=== PATIENT | male | born 1970 | race Caucasian/White ===

== ENCOUNTER 2018-10-24 13:23 | Observation (INO) | payer BC, OTHER ==
[2018-10-24 13:40] LABS: Glucose,Whole Blood 83 mg/dL (75-99)
[2018-10-24 14:35] LABS: Basophils % (A) 1 %; Eosinophils # (A) 0.2 k/uL (0-0.7); Eosinophils % (A) 4 %; HCT 47.5 % (39.0-53.0); HGB 16.3 gm/dL (13.0-17.5); Lymphocytes # (A) 1.2 k/uL (1.0-4.8); Lymphocytes % (A) 22 %; MCH 30.2 pg (25.0-35.0); MCHC 34.3 g/dL (31.0-37.0); MCV 88.1 fL (80.0-100.0); Monocytes # (A) 0.5 k/uL (0-1.0); Monocytes % (A) 9 %; Neutrophils # (A) 3.3 k/uL (1.3-7.7); Neutrophils % (A) 62 %; Platelet Count 180 k/uL (150-450); RBC 5.39 m/uL (4.30-5.90); RDW 14.8 % (11.5-15.5); WBC 5.3 k/uL (3.8-10.6)
[2018-10-24 14:44] LABS: Partial Thromboplastin Time 24.3 sec (22.0-30.0); Prothrombin Time 10.5 sec (9.0-12.0)
[2018-10-24 14:56] LABS: ALT 44 U/L (21-72); AST 30 U/L (17-59); African American GFR (CKD) >90 (>60 ml/min/1.73 sqM); Alkaline Phosphatase 63 U/L (38-126); Anion Gap 11 mmol/L; Blood Urea Nitrogen 20 mg/dL (9-20); Calcium 9.8 mg/dL (8.4-10.2); Carbon Dioxide 27 mmol/L (22-30); Chloride 102 mmol/L (98-107); Glucose 89 mg/dL (74-99); Potassium 4.1 mmol/L (3.5-5.1); Sodium 140 mmol/L (137-145); Total Bilirubin 0.6 mg/dL (0.2-1.3); Total Protein 8.6 g/dL (6.3-8.2)
--- NOTE | 2018-10-24 15:05 | CT ---
EXAMINATION TYPE: CT brain wo con for TPA DATE OF EXAM: 10/24/2018 COMPARISON: None HISTORY: Right side facial numbness and right arm/hand numbness CT DLP: [address] of the brain was performed. The ventricles, basal cisterns and sulci overlying the cerebral convexities demonstrate a normal appe arance. There is no evidence for intracranial hemorrhage or sulcal effacement. No mass effects are seen. Osseous calvarium is intact. If symptoms persist consider MRI as clinically warranted. IMPRESSION: 1. No acute intracranial process is seen at this time.
--- NOTE | 2018-10-24 15:32 | CT ---
EXAMINATION TYPE: CT angio head neck DATE OF EXAM: 10/24/2018 COMPARISON: HISTORY: Right side facial numbness and right arm/hand numbness CT DLP: 728 mGycm CONTRAST: Performed with IV Contrast, patient injected with 50 mL of Isovue 370. Combination Contrast CTA cervical carotids and [place] CTA cervical carotids with 3-D recons truction Contrast CTA of the cervical carotids was performed 3-D reconstruction imaging obtained at a separate workstation. Right carotid system: Mild plaque is seen of the right common carotid artery. There is mild plaque a lso noted at the carotid bulb and proximal ICA. No significant diameter reduction. ECA is patent. Right vertebral artery appears unremarkable. Left carotid system: Mild plaque is seen of the left common carotid artery. There is mild plaque als o noted at the carotid bulb and proximal ICA. No significant diameter reduction. ECA is patent. Lef t vertebral artery appears unremarkable. IMPRESSION: 1. No significant diameter reduction to account for the patient's symptoms. CTA [place] with 3-D reconstruction Contrast CTA of the [place] was performed 3-D reconstruction imaging obtained at a separate workstation. Vertebrobasilar system as well as intracranial portions of the internal carotid arteries and their ma kian tributaries are patent. I do not see evidence for sizable aneurysm or vascular malformation. Pl ease note MRI provides greater sensitivity and specificity. Visualized brain appears grossly unremar kable. IMPRESSION: 1. No significant abnormality.
--- NOTE | 2018-10-24 15:32 | XR ---
EXAMINATION TYPE: XR chest 2V DATE OF EXAM: 10/24/2018 COMPARISON: 10/11/2012 HISTORY: Altered mental status TECHNIQUE: Frontal and lateral views of the chest are obtained. FINDINGS: There are bilateral perihilar opacities. These are masslike in configuration. Remainder th e lungs are clear other than minimal right suprahilar linear probable atelectasis. Cardiomediastinal silhouette is within normal limits. No sizable pneumothorax or pleural effusion. No acute osseous pat hology. IMPRESSION: Bilateral perihilar masslike consolidations. Findings may represent multifocal pneumonia although follow-up to resolution is recommended to exclude pulmonary masses.
--- NOTE | 2018-10-24 16:18 | ED ---
Neuro HPI - General Chief Complaint: Neuro Symptoms/Deficit Stated Complaint: Stroke symptoms Time Seen by Provider: 10/24/18 13:35 Source: patient Mode of arrival: wheelchair Limitations: no limitations - History of Present Illness Is the patient presenting with stroke symptoms?: Yes Initial Comments: The patient is a 48 year old male who presents to the emergency department with reported strokelike symptoms. He states that at noon today he was at work when he had sudden onset of right-sided facial numbness and right upper extremity numbness and weakness. No history of TIA or CVA in the past. Also reported that he had associated difficulties with his speech. It lasted for approximately 10 minutes before self resolving. The patient did come to the emergency room for evaluation. He denies any current symptoms at this time. He denies any visual changes, headache, fevers or chills. No recent blunt head trauma. History of any cardiac arrhythmias. No recent medication changes. Denies ataxia or vertigo. He denies any chest pain or chest palpitations. No shortness of breath. Denies any weakness in his lower extremities. No ripping or tearing sensation to his back. There are no other alleviating, precipitating or modifying factors - Related Data Home Medications: Home Medications Medication Instructions Recorded Confirmed inFLIXimab [Remicade] 700 mg IVPB Q180D 07/09/13 10/24/18 Lisinopril [Zestril] 5 mg PO DAILY 10/24/18 10/24/18 Previous Rx's Medication Instructions Recorded Aspirin 81 mg PO DAILY #30 chewable 10/25/18 Atorvastatin Calcium [Lipitor] 80 mg PO HS #30 tablet 10/25/18 Allergies/Adverse Reactions: Allergies Allergy/AdvReac Type Severity Reaction Status Date / Time No Known Allergies Allergy Verified 10/24/18 14:13 Review of Systems ROS Statement: Those systems with pertinent positive or pertinent negative responses have been documented in the HPI. ROS Other: All systems not noted in ROS Statement are negative. General Exam Limitations: no limitations General appearance: alert, in no apparent distress Head exam: Present: atraumatic, normocephalic, normal inspection Eye exam: Present: normal appearance, PERRL, EOMI. Absent: scleral icterus, conjunctival injection, periorbital swelling ENT exam: Present: normal exam, mucous membranes moist Neck exam: Present: normal inspection. Absent: tenderness, meningismus, lymphadenopathy Respiratory exam: Present: normal lung sounds bilaterally. Absent: respiratory distress, wheezes, rales, rhonchi, stridor Cardiovascular Exam: Present: regular rate, normal rhythm, normal heart sounds. Absent: systolic murmur, diastolic murmur, rubs, gallop, clicks GI/Abdominal exam: Present: soft, normal bowel sounds. Absent: distended, tenderness, guarding, rebound, rigid Extremities exam: Present: normal inspection, full ROM, normal capillary refill. Absent: tenderness, pedal edema, joint swelling, calf tenderness Back exam: Present: normal inspection Neurological exam: Present: alert, oriented X3, CN II-XII intact, normal gait, reflexes normal, other (finger to nose is symmetric bilaterally. Negative pronator drift. No dysdiokinesia). Absent: motor sensory deficit Psychiatric exam: Present: normal affect, normal mood Skin exam: Present: warm, dry, intact, normal color. Absent: rash Stroke MDM - Lab Data Result diagrams: 10/25/18 06:28 10/25/18 06:28 Lab Results 10/24/18 10/24/18 10/24/18 Range/Units 13:38 13:40 13:40 WBC 5.3 (3.8-10.6) k/uL RBC 5.39 (4.30-5.90) m/uL Hgb 16.3 (13.0-17.5) gm/dL Hct 47.5 (39.0-53.0) % MCV 88.1 (80.0-100.0) fL MCH 30.2 (25.0-35.0) pg MCHC 34.3 (31.0-37.0) g/dL RDW 14.8 (11.5-15.5) % Plt Count 180 (150-450) k/uL Neutrophils % 62 % Lymphocytes % 22 % Monocytes % 9 % Eosinophils % 4 % Basophils % 1 % Neutrophils # 3.3 (1.3-7.7) k/uL Lymphocytes # 1.2 (1.0-4.8) k/uL Monocytes # 0.5 (0-1.0) k/uL Eosinophils # 0.2 (0-0.7) k/uL Basophils # 0.0 (0-0.2) k/uL PT (9.0-12.0) sec INR (<1.2) APTT (22.0-30.0) sec Sodium 140 (137-145) mmol/L Potassium 4.1 (3.5-5.1) mmol/L Chloride 102 (98-107) mmol/L Carbon Dioxide 27 (22-30) mmol/L Anion Gap 11 mmol/L BUN 20 (9-20) mg/dL Creatinine 1.10 (0.66-1.25) mg/dL Est GFR (CKD-EPI)AfAm >90 (>60 ml/min/1.73 sqM) Est GFR (CKD-EPI)NonAf 80 (>60 ml/min/1.73 sqM) Glucose 89 (74-99) mg/dL POC Glucose (mg/dL) 83 (75-99) mg/dL POC Glu Typewriter Repairer ID Calcium 9.8 (8.4-10.2) mg/dL Total Bilirubin 0.6 (0.2-1.3) mg/dL AST 30 (17-59) U/L ALT 44 (21-72) U/L Alkaline Phosphatase 63 (38-126) U/L Total Protein 8.6 H (6.3-8.2) g/dL Albumin 5.0 (3.5-5.0) g/dL 10/24/18 Range/Units 13:40 WBC (3.8-10.6) k/uL RBC (4.30-5.90) m/uL Hgb (13.0-17.5) gm/dL Hct (39.0-53.0) % MCV (80.0-100.0) fL MCH (25.0-35.0) pg MCHC (31.0-37.0) g/dL RDW (11.5-15.5) % Plt Count (150-450) k/uL Neutrophils % % Lymphocytes % % Monocytes % % Eosinophils % % Basophils % % Neutrophils # (1.3-7.7) k/uL Lymphocytes # (1.0-4.8) k/uL Monocytes # (0-1.0) k/uL Eosinophils # (0-0.7) k/uL Basophils # (0-0.2) k/uL PT 10.5 (9.0-12.0) sec INR 1.0 (<1.2) APTT 24.3 (22.0-30.0) sec Sodium (137-145) mmol/L Potassium (3.5-5.1) mmol/L Chloride (98-107) mmol/L Carbon Dioxide (22-30) mmol/L Anion Gap mmol/L BUN (9-20) mg/dL Creatinine (0.66-1.25) mg/dL Est GFR (CKD-EPI)AfAm (>60 ml/min/1.73 sqM) Est GFR (CKD-EPI)NonAf (>60 ml/min/1.73 sqM) Glucose (74-99) mg/dL POC Glucose (mg/dL) (75-99) mg/dL POC Glu Typewriter Repairer ID Calcium (8.4-10.2) mg/dL Total Bilirubin (0.2-1.3) mg/dL AST (17-59) U/L ALT (21-72) U/L Alkaline Phosphatase (38-126) U/L Total Protein (6.3-8.2) g/dL Albumin (3.5-5.0) g/dL - Medical Decision Making Upon arrival the patient is placed in room 14. He is hooked up to continuous pulse ox and cardiac monitoring. NIH scale is performed in the patient has a score of 0. I did discuss diagnosis, differential and treatment options. Peripheral IV is established. Laboratory studies were obtained. I did send the patient for a CT of his head as well as CT angios head and neck. Upon review the results I did discuss them with the patient. There are no acute signs of stroke on CT at this time. I did recommend hospital admission for which the patient did agree to. I did call discuss case with Dr. Owens. She did accept admission for the patient. She is requesting echo and ultrasound of the carotids to be performed. She is also requesting a neurology consult for possible MRI. These orders are placed. I did get a call from radiology which stated that they did not think the ultrasound of the carotids was appropriate. They're refusing to perform the exam at this time. I will defer to the primary care physician to proceed. I did provide the patient with an aspirin 324 mg and a statin. The patient remained in stable condition with no new focal neurologic deficits and was transported to the floor in stable condition 10/24/18 18:26 EKG demonstrates a normal sinus rhythm with a ventricular rate of 75. CO interval 150. QRS 98. QTC 406. There are no acute ST segment elevations. There is mild J-point elevation in all leads. No reciprocal changes Past Medical History Past Medical History: No Reported History Additional Past Medical History / Comment(s): Hx. biopsy lymph nodes Hx. psoriasis History of Any Multi-Drug Resistant Organisms: None Reported Past Surgical History: No Surgical Hx Reported Additional Past Surgical History / Comment(s): Hx. left knee arthrosc/Hx. circumcision Past Anesthesia/Blood Transfusion Reactions: No Reported Reaction Past Psychological History: No Psychological Hx Reported Smoking Status: Never smoker Past Alcohol Use History: Occasional Past Drug Use History: None Reported - Past Family History Father History Unknown: Yes Mother History Unknown: Yes Additional Family Medical History / Comment(s): GREAT GRANDMA HISTORY OF STROKES Course Vital Signs 10/24/18 10/24/18 10/24/18 13:25 13:45 16:41 Temperature 98.5 F Pulse Rate 77 82 79 Respiratory 18 14 18 Rate Blood Pressure 141/91 159/99 145/98 O2 Sat by Pulse 100 100 98 Oximetry 10/24/18 10/24/18 10/24/18 17:00 17:30 18:00 Temperature Pulse Rate 95 80 84 Respiratory 16 18 17 Rate Blood Pressure 121/90 139/96 134/84 O2 Sat by Pulse 95 97 99 Oximetry 10/24/18 10/24/18 18:30 19:40 Temperature 98.1 F Pulse Rate 85 82 Respiratory 16 18 Rate Blood Pressure 131/93 147/94 O2 Sat by Pulse 99 97 Oximetry Disposition Clinical Impression: Transient cerebral ischemia Disposition: ADMITTED IP TO THIS [facility] Condition: Stable Is patient prescribed a controlled substance at d/c from ED?: No Decision to Admit Reason: Admit from EC Decision Date: 10/24/18 Decision Time: 16:17
[2018-10-24] MEDS ORDERED: NALOXONE 0.4 MG/ML 1 ML VIAL IV PRN (16:19)
[2018-10-24] MEDS ORDERED: ATORVASTATIN 40 MG TAB PO STA (16:21)
[2018-10-24] MEDS ORDERED: ASPIRIN 325 MG TAB PO ONE (16:30)
[2018-10-25 03:54] VITALS: RESP 18
[2018-10-25 07:25] LABS: African American GFR (CKD) >90 (>60 ml/min/1.73 sqM); Anion Gap 11 mmol/L; Blood Urea Nitrogen 20 mg/dL (9-20); Calcium 9.5 mg/dL (8.4-10.2); Carbon Dioxide 22 mmol/L (22-30); Chloride 106 mmol/L (98-107); Glucose 101 mg/dL (74-99); Potassium 4.9 mmol/L (3.5-5.1); Sodium 139 mmol/L (137-145)
[2018-10-25] MEDS ORDERED: ASPIRIN 325 MG TAB PO SCH (09:00)
[2018-10-25 09:03] LABS: HCT 46.5 % (39.0-53.0); MCH 30.3 pg (25.0-35.0); MCHC 34.4 g/dL (31.0-37.0); MCV 88.2 fL (80.0-100.0); Mean Platelet Volume 7.5; Platelet Count 174 k/uL (150-450); RBC 5.27 m/uL (4.30-5.90); RDW 14.9 % (11.5-15.5); WBC 4.8 k/uL (3.8-10.6)
[2018-10-25] MEDS ORDERED: LISINOPRIL 5 MG TAB PO SCH (09:15)
[2018-10-25 09:36] LABS: Eosinophils # (M) 0.14 k/uL (0-0.7); Lymphocytes # (M) 1.39 k/uL (1.0-4.8); Monocytes # (M) 0.34 k/uL (0-1.0); Neutrophils % (M) 61 %; Nucleated Red Blood Cells 0 /100 WBC (0-0); Total Cells Counted 100
--- NOTE | 2018-10-25 10:46 | ECHOF ---
Referral Reason:tia MEASUREMENTS -------- HEIGHT: 175.3 cm WEIGHT: 92.1 kg BP: 120/70 RVIDd: 3.1 cm (< 3.3) IVSd: 1.2 cm (0.6 - 1.1) LVIDd: 3.2 cm (3.9 - 5.3) LVPWd: 1.4 cm (0.6 - 1.1) IVSs: 1.6 cm LVIDs: 1.9 cm LVPWs: 1.7 cm LAESV Index (A-L): 13.72 ml/m Ao Diam: 3.4 cm (2.0 - 3.7) AV Cusp: 1.9 cm (1.5 - 2.6) LA Diam: 2.9 cm (2.7 - 3.8) MV EXCURSION: 17.570 mm (> 18.000) MV EF SLOPE: 88 mm/s (70 - 150) EPSS: 0.2 cm MV E Kwesi: 0.69 m/s MV DecT: 240 ms MV A Kwesi: 0.75 m/s MV E/A Ratio: 0.92 RAP: 5.00 mmHg RVSP: 20.05 mmHg FINDINGS -------- Sinus rhythm. This was a technically adequate study. The left ventricular size is normal. There is mild concentric left ventricular hypertrophy. Overa ll left ventricular systolic function is normal with, an EF between 60 - 65 %. The diastolic fillin g pattern is normal for the age of the patient 9.57. The right ventricle is normal in size. Normal LA size by volume 22+/-6 ml/m2. The right atrial size is normal. Interatrial and interventricular septum intact. The aortic valve is trileaflet and appears structurally normal. There is no evidence of aortic regu rgitation. There is no evidence of aortic stenosis. The mitral valve is normal. Mild mitral regurgitation is present. Mild tricuspid regurgitation present. There is no evidence of pulmonary hypertension. The right v entricular systolic pressure, as measured by Doppler, is 20.05mmHg. Trace/mild (physiologic) pulmonic regurgitation. The aortic root is dilated measuring 3.4cm. Normal inferior vena cava with normal inspiratory collapse consistent with estimated right atrial pre ssure of 5 mmHg. There is no pericardial effusion. CONCLUSIONS -------- 1. Sinus rhythm. 2. This was a technically adequate study. 3. The left ventricular size is normal. 4. There is mild concentric left ventricular hypertrophy. 5. Overall left ventricular systolic function is normal with, an EF between 60 - 65 %. 6. The right ventricle is normal in size. 7. Normal LA size by volume 22+/-6 ml/m2. 8. The right atrial size is normal. 9. Interatrial and interventricular septum intact. 10. The aortic valve is trileaflet and appears structurally normal. 11. There is no evidence of aortic regurgitation. 12. There is no evidence of aortic stenosis. 13. The mitral valve is normal. 14. Mild mitral regurgitation is present. 15. Mild tricuspid regurgitation present. 16. There is no evidence of pulmonary hypertension. 17. The right ventricular systolic pressure, as measured by Doppler, is 20.05mmHg. 18. Trace/mild (physiologic) pulmonic regurgitation. 19. The aortic root is dilated measuring 3.4cm. 20. Normal inferior vena cava with normal inspiratory collapse consistent with estimated right atrial pressure of 5 mmHg. 21. There is no pericardial effusion. FAMILY PRESERVATION WORKER: Tamera Banks BRITTNY
[2018-10-25 10:59] LABS: Cholesterol 220 mg/dL (<200); HDL Cholesterol 53 mg/dL (40-60); LDL Cholesterol,Calculated 154 mg/dL (0-99); Triglycerides 63 mg/dL (<150)
[2018-10-25 12:34] VITALS: BP 118/84; PULSE 76; TEMP 97.9
--- NOTE | 2018-10-25 12:41 | P.HPIM ---
History of Present Illness H&P Date: 10/25/18 Chief Complaint: Numbness HISTORY AND PHYSICAL AND DISCHARGE SUMMARY: This is a 48-year-old male patient of Dr. Jones with past medical history of psoriasis on Remicade, hypertension. 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 All his symptoms lasted for about 5-10 minutes. He denies any change in the strength of his extremities. He denies any headache, no neck pain, no back pain. He denies any difficulty with walking or balance issues. He denies any patient denies having any shortness of breath, cough. He denies any sick contacts. He does give history that he has had an abnormal chest x-ray and was worked up by Dr. Garza and sarcoidosis was ruled out. patient came into [facility] emergency center for evaluation. Patient was afebrile, blood pressure 141/81, pulse ox 100% on room air, heart rate 77. CBC and comprehensive metabolic panel within normal limits. Triglycerides 63, cholesterol 220, LDL 154, HDL 53. INR 1. Echocardiogram reveals EF of 60-65%, mild mitral regurgitation and mild tricuspid regurgitation. No pulmonary hypertension. Aortic root is dilated at 3.4 cm. CAT scan of the brain showed no acute abnormality. CT angiogram of the head and neck was negative. Chest x-ray reveals bilateral perihilar masslike consolidations. Findings may represent multifocal pneumonia, follow-up to exclude pulmonary masses. Patient placed on the cardiac stepdown unit as observation status. Consult with neurology. Patient has been seen in consultation by Dr. Locke with recommendations for baby aspirin, atorvastatin, outpatient neurology follow-up and MRI of the brain. Outpatient MRI of the brain will be scheduled. Patient will be discharged home today in stable condition. Review of Systems All systems: negative Constitutional: Denies anorexia, Denies chills, Denies fatigue, Denies fever, Denies lethargy, Denies malaise, Denies poor appetite, Denies sweats, Denies weakness, Denies weight loss Eyes: denies blurred vision, denies pain Ears, nose, mouth and throat: Denies headache, Denies nasal congestion, Denies nasal discharge, Denies sore throat, Denies vertigo Cardiovascular: Denies chest pain, Denies dyspnea on exertion, Denies edema, Denies leg edema, Denies lightheadedness, Denies shortness of breath, Denies syncope Respiratory: Denies cough, Denies cough with sputum, Denies dyspnea, Denies excessive sputum, Denies hemoptysis, Denies home oxygen, Denies wheezing Gastrointestinal: Denies abdominal pain, Denies diarrhea, Denies nausea, Denies vomiting Genitourinary: Denies dysuria, Denies urinary retention Musculoskeletal: Denies gait dysfunction, Denies muscle weakness, Denies myalgias Integumentary: Denies pruritus, Denies rash, Denies wounds Neurological: Reports numbness, Denies aphasia, Denies ataxia, Denies change in mentation, Denies change in speech, Denies confusion, Denies gait dysfunction, Denies headaches, Denies seizures, Denies vertigo, Denies weakness Psychiatric: Denies anxiety, Denies depression Endocrine: Denies fatigue, Denies weight change Past Medical History Past Medical History: No Reported History Additional Past Medical History / Comment(s): Hx. biopsy lymph nodes Hx. psoriasis History of Any Multi-Drug Resistant Organisms: None Reported Past Surgical History: No Surgical Hx Reported Additional Past Surgical History / Comment(s): Hx. left knee arthrosc/Hx. circumcision Past Anesthesia/Blood Transfusion Reactions: No Reported Reaction Past Psychological History: No Psychological Hx Reported Smoking Status: Never smoker Past Alcohol Use History: Occasional Additional Past Alcohol Use History / Comment(s): Patient is a lifelong nonsmoker. No illicit drug use. Occasional alcohol use. Past Drug Use History: None Reported - Past Family History Father History Unknown: Yes Additional Family Medical History / Comment(s): Father is alive with no major medical problems. No history of stroke. No history of autoimmune disorder Mother History Unknown: Yes Additional Family Medical History / Comment(s): GREAT GRANDMA HISTORY OF STROKES. Mother is alive at age 78 with no major medical problems. No history of stroke. No history of autoimmune disorder. Medications and Allergies Home Medications Medication Instructions Recorded Confirmed Type inFLIXimab [Remicade] 700 mg IVPB Q180D 07/09/13 10/24/18 History Lisinopril [Zestril] 5 mg PO DAILY 10/24/18 10/24/18 History Aspirin 81 mg PO DAILY #30 chewable 10/25/18 Rx Atorvastatin Calcium [Lipitor] 80 mg PO HS #30 tablet 10/25/18 Rx Allergies Allergy/AdvReac Type Severity Reaction Status Date / Time No Known Allergies Allergy Verified 10/24/18 14:13 Physical Exam Vitals: Vital Signs Temp Pulse Pulse Resp BP BP Pulse Ox 10/25/18 07:44 97.6 F 80 18 130/86 10/25/18 04:00 98.1 F 78 18 130/88 98 10/25/18 00:00 98.3 F 78 18 120/70 97 10/24/18 20:30 98.2 F 78 16 140/87 98 10/24/18 19:40 98.1 F 82 18 147/94 97 10/24/18 18:30 85 16 131/93 99 10/24/18 18:00 84 17 134/84 99 10/24/18 17:30 80 18 139/96 97 10/24/18 17:00 95 16 121/90 95 10/24/18 16:41 79 18 145/98 98 10/24/18 13:45 82 14 159/99 100 10/24/18 13:25 98.5 F 77 18 141/91 100 Intake and Output 10/24/18 10/25/18 10/25/18 22:59 06:59 14:59 Other: Voiding Method Toilet Toilet # Voids 1 Weight 92.2 kg Gen: This is a 48-year-old male. Patient is resting in bed appears comfortable and in no acute distress. HEENT: Head is atraumatic, normocephalic. Pupils equal, round. Sclerae is anicteric. NECK: Supple. No JVD. No lymphadenopathy. No thyromegaly. LUNGS: Clear to auscultation. No wheezes or rhonchi. No intercostal retractions. HEART: Regular rate and rhythm. No murmur. ABDOMEN: Soft. Bowel sounds are present. No masses. No tenderness. EXTREMITIES: No pedal edema. No calf tenderness. NEUROLOGICAL: Patient is awake, alert and oriented x3. Cranial nerves 2 through 12 are grossly intact. Results CBC & Chem 7: 10/25/18 06:28 10/25/18 06:28 Labs: Abnormal Lab Results - Last 24 Hours (Table) 10/24/18 10/25/18 Range/Units 13:40 06:28 Glucose 101 H (74-99) mg/dL Total Protein 8.6 H (6.3-8.2) g/dL Thrombosis Risk Factor Assmnt - Choose All That Apply Each Factor Represents 1 point: Age 41-60 years Thrombosis Risk Factor Assessment Total Risk Factor Score: 1 Thrombosis Risk Factor Assessment Level: Low Risk Assessment and Plan Plan: 1. Transient numbness of the tongue, face, right hand. Neurology consult. All testing has been negative. 2. Psoriasis. Patient is on Remicade. 3. Hypertension. Continue lisinopril 5 mg daily. Patient placed as observation status. Discharge plan: home Discharge Medication List inFLIXimab [Remicade] 700 mg IVPB Q180D 07/09/13 [History] Lisinopril [Zestril] 5 mg PO DAILY 10/24/18 [History] Aspirin 81 mg PO DAILY #30 chewable 10/25/18 [Rx] Atorvastatin Calcium [Lipitor] 80 mg PO HS #30 tablet 10/25/18 [Rx] Impression and plan of care have been directed as dictated by the signing physician. Myra Barton nurse practitioner acting as scribe for signing physician.
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
== END 2018-10-25 15:48 | disposition home or self-care (01) ==
LOC: EC 13:23 → 3SCARD 16:19
PROVIDERS: ADMIT Internal Medicine; ATTEND Internal Medicine
DX: R20.0 Anesthesia of skin (principal); R47.81 Slurred speech; R53.1 Weakness; L40.9 Psoriasis, unspecified; I08.1 Rheumatic disorders of both mitral and tricuspid valves; I10 Essential (primary) hypertension; Z79.82 Long term (current) use of aspirin; Z79.899 Other long term (current) drug therapy; Z87.828 Personal history of other (healed) physical injury and trauma; Z82.3 Family history of stroke
CPT/HCPCS: 99285; 36415; 93005; 93306; 80061; 80053; 80048; 85025 ×2; 85610; 85730; 71046; 70496; 70450; 70498; G0378 ×2; Q9967

== ENCOUNTER → 2018-10-30 | Outpatient (CLI) | payer BC ==
--- NOTE | 2018-10-30 22:47 | MR ---
EXAMINATION TYPE: MR brain wo/w con DATE OF EXAM: 10/30/2018 COMPARISON: CT brain 6 days ago. HISTORY: Tongue numbness and right-sided numbness. Acute onset neuro deficits earlier this week. TIA. TECHNIQUE: Multiplanar, multisequence images of the brain and brainstem is performed without and with IV contras t, utilizing 9 mL intravenous Gadavist . FINDINGS: Diffusion weighted images demonstrate no evidence of a recent infarct or other diffusion ab normality. There is no extra-axial fluid collection or significant white matter signal abnormality. The ventricular system and cisternal spaces are normal in size and appearance. The brain volume is age appropriate. Midline structures demonstrate normal morphology. The craniocervical junction appears within normal limits. Post contrast images demonstrate no abnormal enhancement. The dural venous sinuses appear pa tent. The visualized sinuses are clear and the globes are intact. IMPRESSION: No evidence of a recent infarct. Fairly unremarkable study.
== END | disposition home or self-care (01) ==
LOC: RADMRIMAIN 18:00
PROVIDERS: ATTEND Internal Medicine Geriatric Medicine
DX: G45.9 Transient cerebral ischemic attack, unspecified (principal)
CPT/HCPCS: 70553; A9585

== ENCOUNTER → 2018-11-04 | Outpatient (CLI) | payer BC ==
--- NOTE | 2018-12-06 18:38 | P.PN ---
Progress Note - Text Progress Note Date: 12/06/18 This is a report on the 30 day event monitor. Baseline rhythm is sinus. Patient remained mostly in sinus rhythm and episodes of sinus tachycardia, no supraventricular or ventricular arrhythmias are detected. Patient complained of having some numbness in the fingers and face not correlating with any cardiac events. Final impression: #1. Sinus rhythm. #2 episodes of sinus tachycardia #3. No sustained arrhythmias. #4. Patient complained of some numbness in the fingers and face not correlating with any cardiac events
--- NOTE | 2018-12-09 13:49 | EM ---
This is a report on the 30 day event monitor. Baseline rhythm is sinus. Patient remained mostly in sinus rhythm and episodes of sinus tachycardia, no supraventricular or ventricular arrhythmias are detected. Patient complained of having some numbness in the fingers and face not correlating with any cardiac events. Final impression: #1. Sinus rhythm. #2 episodes of sinus tachycardia #3. No sustained arrhythmias. #4. Patient complained of some numbness in the fingers and face not correlating with any cardiac events MTDD
== END | disposition home or self-care (01) ==
LOC: RADECHMAIN 11:28
PROVIDERS: ATTEND Internal Medicine Geriatric Medicine
DX: R00.0 Tachycardia, unspecified (principal); R20.0 Anesthesia of skin; G45.9 Transient cerebral ischemic attack, unspecified
CPT/HCPCS: 93270

== ENCOUNTER → 2018-12-10 | Outpatient (CLI) | payer BC ==
--- NOTE | 2018-12-10 13:14 | XR ---
EXAMINATION TYPE: XR cervical spine comp DATE OF EXAM: 12/10/2018 TECHNIQUE: Frontal, lateral, oblique, swimmers, and open mouth view of the cervical spine are obtaine d. HISTORY: M54.2 COMPARISON: None FINDINGS: The cervical spine is visualized in its entirety from C1 thru the top of T1 level, it is s atisfactory in alignment without evidence of acute fracture or dislocation. Uncovertebral hypertroph y is seen at C3-C4 creating mild left neural foraminal narrowing at C3-C4. Uncovertebral hypertrophy is also seen on the left at C7. No significant neural foraminal narrowing on the oblique images. The pre-vertebral soft tissue appears within normal limits. The C1-C2 articulation is within normal limi ts on the open mouth view. IMPRESSION: No acute fracture or dislocation is seen in the cervical spine. Mild multilevel degenera tive disc disease at C3-C4.
== END | disposition home or self-care (01) ==
LOC: RADXRMAIN 12:03
PROVIDERS: ATTEND Internal Medicine Geriatric Medicine
DX: M50.31 Other cervical disc degeneration, high cervical region (principal)
CPT/HCPCS: 72050

== ENCOUNTER → 2018-12-12 | Outpatient (CLI) | payer BC ==
--- NOTE | 2018-12-15 16:32 | EEG ---
ELECTROENCEPHALOGRAM REPORT PROCEDURE DATE: 12/12/2018. ELECTROENCEPHALOGRAM (EEG) REPORT: TECHNIQUE: A routine 18 channel EEG was performed with video using the 10/20 international system. HISTORY: Numbness and tingling in the right hand/finger tips and right facial numbness. In some of these episodes, patient has also experienced loss of speech. CURRENT MEDICATIONS: Keppra, aspirin, lisinopril, atorvastatin. STUDY DURATION: 26 minutes. FINDINGS: BACKGROUND: The background activity consists of 9-10 Hz rhythmic waveforms symmetric through both posterior quadrants. ACTIVATION: Hyperventilation: Induced mild physiological slowing. Photic stimulation: Symmetric driving seen. Sleep: Stages I and II sleep noted. ABNORMALITIES: None. IMPRESSION: Normal EEG. No epileptiform activity was present. No seizures were recorded. MMODL / IJN: [id number] /
== END ==
LOC: NEUROMAIN 10:38
PROVIDERS: ATTEND Internal Medicine Geriatric Medicine
DX: R56.9 Unspecified convulsions (principal)
CPT/HCPCS: 95819

== ENCOUNTER → 2018-12-25 | Outpatient (CLI) | payer BC ==
--- NOTE | 2018-12-25 10:15 | MR ---
EXAMINATION TYPE: MR cervical spine wo con DATE OF EXAM: 12/25/2018 COMPARISON: None HISTORY: 48-year-old male with Cervicalgia, right sided numbness in hand/face TECHNIQUE: Multiplanar, multisequence images of the cervical spine were acquired. FINDINGS: No craniocervical junction abnormality, predental space widening, or prevertebral soft tissue swellin g. Variable mild intervertebral disc desiccation throughout the cervical spine. Preserved alignment. No suspicious bone marrow replacement. Right paracentral disc protrusion at C6-C7 with annular fissure. Mild uncovertebral joint and facet arthropathy particularly in the mid and lower cervical spine. At C2-C3, no canal or foraminal stenosis. At C3-C4, mild facet and uncovertebral joint arthropathy. Changes result in mild left greater than ri ght neuroforaminal narrowing. No spinal canal stenosis. At C4-C5, facet arthropathy and uncovertebral joint spurring causes mild left neuroforaminal stenosis without canal stenosis. At C5-C6, mild facet arthropathy without canal or foraminal stenosis. At C6-C7, right paracentral disc protrusion with annular fissure. Facet and mild uncovertebral joint arthropathy. Changes result in mild neuroforaminal narrowing. There is mild overall spinal canal sten osis with abutment and slight flattening of the right ventral cord but no cord compression or foramin al canal compromise. At C7-T1, mild facet arthropathy without canal or foraminal stenosis. Normal course and signal intensity of the cervical spinal cord. IMPRESSION: 1. Mild degenerative disc desiccation throughout the cervical spine but with a superimposed right par acentral disc herniation at C6-C7 showing an annular fissure. There is mild narrowing of the spinal c anal at this level with disc abutting and slightly flattening the right ventral cord. No jim canal compromise or cord compression. 2. Additional scattered mild facet and uncovertebral joint arthropathy causing variable mild neural f oraminal narrowing as outlined above.
== END | disposition home or self-care (01) ==
LOC: RADMRIMAIN 07:00
PROVIDERS: ATTEND Internal Medicine Geriatric Medicine
DX: M48.02 Spinal stenosis, cervical region (principal); M50.323 Other cervical disc degeneration at C6-C7 level; M50.223 Other cervical disc displacement at C6-C7 level; M46.92 Unspecified inflammatory spondylopathy, cervical region
CPT/HCPCS: 72141

== ENCOUNTER → 2020-10-22 | Outpatient (CLI) | payer BC ==
[2020-10-26 14:45] LABS: Beef IgE <0.10 kU/L (<0.10); Beef IgE Class CLASS 0; Pork IgE Class CLASS 0
[2020-10-26 14:46] LABS: Chicken IgE Class CLASS 0; Yeast Bakers/Brew IgE <0.10 kU/L (<0.10); Yeast Bakers/Brew IgE Class CLASS 0
[2020-10-26 14:47] LABS: Cow's Milk IgE Class CLASS 0; Egg White IgE <0.10 kU/L (<0.10); Peanut IgE <0.10 kU/L (<0.10); Potato IgE <0.10 kU/L (<0.10); Potato IgE Class CLASS 0; Soybean IgE <0.10 kU/L (<0.10)
[2020-10-26 17:25] LABS: Soybean IgG 3.8 mcg/mL (<2.0); Tomato IgG 3.9 mcg/mL (<2.0)
[2020-10-26 17:26] LABS: Chicken Meat IgG 5.3 mcg/mL (<2.0); Cow's Milk IgG 57.5 mcg/mL (<2.0); Potato IgG 4.9 mcg/mL (<2.0); Wheat IgG 10.9 mcg/mL (<2.0)
== END | disposition home or self-care (01) ==
LOC: LABWHC1 14:13
PROVIDERS: ATTEND Otolaryngology
DX: J30.89 Other allergic rhinitis (principal)
CPT/HCPCS: 36415; 86001; 86003

== ENCOUNTER → 2021-06-03 | Outpatient (CLI) | payer MEDICAID ==
[2021-06-03 14:10] LABS: African American GFR (CKD) 91.5 (60.0-200.0); Albumin 4.4 g/dL (3.8-4.9); Albumin/Globulin Ratio 1.26 (1.60-3.17); Anion Gap 10.6 mmol/L (10.00-18.00); BUN/Creat Ratio 11.55 Ratio (12.00-20.00); Basophils # (A) 0.03 X 10*3/uL (0.00-0.10); Basophils % (A) 0.7 %; Blood Urea Nitrogen 12.7 mg/dL (9.0-27.0); Calcium 9.6 mg/dL (8.7-10.3); Carbon Dioxide 24.4 mmol/L (20.0-27.5); Eosinophils % (A) 4.5 %; Globulin 3.5 g/dL (1.6-3.3); HCT 47.1 % (39.6-50.0); HGB 15.4 g/dL (13.0-17.0); Immature Grans, Automated 0.2 %; Lymphocytes # (A) 0.77 X 10*3/uL (0.90-5.00); Lymphocytes % (A) 17.4 %; MCH 29.5 pg (27.0-32.0); MCHC 32.7 g/dL (32.0-37.0); MCV 90.2 fL (80.0-97.0); Mean Platelet Volume 10.4 fL (9.5-12.2); Monocytes % (A) 13.6 %; NRBC Per 100 WBC 0 /100 WBCS (0.0-0.0); Neutrophils # (A) 2.81 X 10*3/uL (1.80-7.70); Neutrophils % (A) 63.6 %; Platelet Count 153 X 10*3/uL (140-440); Potassium 4.5 mmol/L (3.5-5.5); RBC 5.22 X 10*6/uL (4.40-5.60); RDW 12.2 % (11.5-14.5); Total Bilirubin 0.6 mg/dL (0.30-1.20); Total Protein 7.9 g/dL (6.2-8.2); WBC 4.42 X 10*3/uL (4.50-10.00)
== END | disposition home or self-care (01) ==
LOC: LABWHC1 08:32
PROVIDERS: ATTEND Internal Medicine Rheumatology
DX: L40.50 Arthropathic psoriasis, unspecified (principal)
CPT/HCPCS: 36415; 80053; 85025; 86480

== ENCOUNTER → 2021-06-21 | Outpatient (CLI) | payer MEDICAID ==
[~2021-06-21] MED LIST: INFLIXIMAB-DYYB 700 MG in SODIUM CHLORIDE 0.9% 250 ML IV NR; SODIUM CHLORIDE 0.9% 500 ML 500 ML in EMPTY BAG 1 BAG IV PRN
[2021-06-21 09:24] VITALS: RESP 16; TEMP 98.2
[2021-06-21 10:42] VITALS: BP 129/81; PULSE 76
== END ==
LOC: PROCWHC3 08:43 → EDSTATUS 09:00
PROVIDERS: ATTEND Internal Medicine Rheumatology
DX: L40.59 Other psoriatic arthropathy (principal); E66.9 Obesity, unspecified; M06.9 Rheumatoid arthritis, unspecified; Z68.31 Body mass index [BMI] 31.0-31.9, adult
CPT/HCPCS: 96413; 96415; Q5103

== ENCOUNTER → 2021-08-02 | Outpatient (CLI) | payer MEDICAID ==
[2021-08-02 08:56] VITALS: RESP 16; TEMP 98.1
[2021-08-02 10:18] VITALS: BP 127/84; PULSE 73
== END ==
LOC: PROCWHC3 08:40
PROVIDERS: ATTEND Internal Medicine Rheumatology
DX: L40.59 Other psoriatic arthropathy (principal)
CPT/HCPCS: 96413; 96415; Q5103

== ENCOUNTER → 2021-09-12 | Outpatient (CLI) | payer MEDICAID ==
[2021-09-12 07:48] VITALS: RESP 16; TEMP 97.7
[2021-09-12 09:04] VITALS: BP 142/81; PULSE 83
== END ==
LOC: PROCWHC3 07:32
PROVIDERS: ATTEND Internal Medicine Rheumatology
DX: L40.59 Other psoriatic arthropathy (principal)
CPT/HCPCS: 96413; 96415; Q5103

== ENCOUNTER → 2021-09-26 | Outpatient (CLI) | payer MEDICAID ==
[2021-09-26 14:37] LABS: Basophils # (A) 0.04 X 10*3/uL (0.00-0.10); Eosinophils # (A) 0.17 X 10*3/uL (0.04-0.35); Eosinophils % (A) 4.1 %; HCT 46.8 % (39.6-50.0); HGB 15.7 g/dL (13.0-17.0); Immature Grans, Automated 0 %; Lymphocytes # (A) 1.43 X 10*3/uL (0.90-5.00); Lymphocytes % (A) 34.2 %; MCH 29.4 pg (27.0-32.0); MCHC 33.5 g/dL (32.0-37.0); MCV 87.6 fL (80.0-97.0); Mean Platelet Volume 10.3 fL (9.5-12.2); Monocytes # (A) 0.49 X 10*3/uL (0.20-1.00); Monocytes % (A) 11.7 %; NRBC Per 100 WBC 0 /100 WBCS (0.0-0.0); Neutrophils # (A) 2.05 X 10*3/uL (1.80-7.70); Platelet Count 158 X 10*3/uL (140-440); RBC 5.34 X 10*6/uL (4.40-5.60); RDW 13.4 % (11.5-14.5); WBC 4.18 X 10*3/uL (4.50-10.00)
[2021-09-26 14:56] LABS: ALT 30 U/L (10-49); AST 23 U/L (14-35); African American GFR (CKD) 89.9 (60.0-200.0); Albumin 4.6 g/dL (3.8-4.9); Albumin/Globulin Ratio 1.49 (1.60-3.17); Alkaline Phosphatase 58 U/L (41-126); BUN/Creat Ratio 11.98 Ratio (12.00-20.00); Blood Urea Nitrogen 13.3 mg/dL (9.0-27.0); Calcium 9.4 mg/dL (8.7-10.3); Carbon Dioxide 22.2 mmol/L (20.0-27.5); Chloride 105 mmol/L (96-109); Chol/HDL Ratio 2.95 Ratio; Globulin 3.1 g/dL (1.6-3.3); Glucose 106 mg/dL (70-110); LDL Cholesterol,Calculated 106.6 mg/dL (0.0-131.0); Non-African American GFR(CKD) 77.6 (60.0-200.0); Potassium 4.1 mmol/L (3.5-5.5); Sodium 141 mmol/L (135-145); Total Protein 7.7 g/dL (6.2-8.2); VLDL Calculation 16.26 mg/dL (5.00-40.00)
== END | disposition home or self-care (01) ==
LOC: LABWHC1 09:16
PROVIDERS: ATTEND Nurse Practitioner Family
DX: E78.2 Mixed hyperlipidemia (principal); R73.9 Hyperglycemia, unspecified; N40.1 Benign prostatic hyperplasia with lower urinary tract symptoms
CPT/HCPCS: 36415; 80053; 80061; 83036; 84153; 84443; 85025

== ENCOUNTER → 2021-10-31 | Outpatient (CLI) | payer MEDICAID ==
[2021-10-31 08:25] VITALS: RESP 16; TEMP 98.1
[2021-10-31 09:50] VITALS: BP 131/82; PULSE 76
== END ==
LOC: PROCWHC3 08:04
PROVIDERS: ATTEND Internal Medicine Rheumatology
DX: L40.59 Other psoriatic arthropathy (principal)
CPT/HCPCS: 96413; 96415; Q5103; 99283

== ENCOUNTER → 2021-12-12 | Outpatient (CLI) | payer MEDICAID ==
[2021-12-12 08:13] VITALS: RESP 16; TEMP 97.9
[2021-12-12 09:14] VITALS: BP 149/95; PULSE 70
== END ==
LOC: PROCWHC3 08:01
PROVIDERS: ATTEND Internal Medicine Rheumatology
DX: L40.59 Other psoriatic arthropathy (principal)
CPT/HCPCS: 96413; 96415; Q5103

== ENCOUNTER → 2022-01-23 | Outpatient (CLI) | payer MEDICAID ==
[~2022-01-23] MED LIST changes: +INFLIXIMAB-DYYB 700 MG in SODIUM CHLORIDE 0.9% 180 ML IV NR; -INFLIXIMAB-DYYB 700 MG in SODIUM CHLORIDE 0.9% 250 ML IV NR
[2022-01-23 08:51] VITALS: RESP 16; TEMP 98.3
[2022-01-23 10:23] VITALS: BP 148/89; PULSE 78
== END ==
LOC: PROCWHC3 08:29
PROVIDERS: ATTEND Internal Medicine Rheumatology
DX: L40.59 Other psoriatic arthropathy (principal)
CPT/HCPCS: 96413; 96415; Q5103

== ENCOUNTER → 2022-03-06 | Outpatient (CLI) | payer MEDICAID ==
[2022-03-06 08:28] VITALS: TEMP 97.8
[2022-03-06 09:06] VITALS: RESP 16
[2022-03-06 09:52] VITALS: BP 129/85; PULSE 96
== END ==
LOC: PROCWHC3 08:19
PROVIDERS: ATTEND Internal Medicine Rheumatology
DX: L40.59 Other psoriatic arthropathy (principal)
CPT/HCPCS: 96413; 96415; Q5103

== ENCOUNTER → 2022-06-05 | Outpatient (CLI) | payer MEDICAID ==
[~2022-06-05] MED LIST changes: -INFLIXIMAB-DYYB 700 MG in SODIUM CHLORIDE 0.9% 180 ML IV NR; +INFLIXIMAB-DYYB 700 MG in SODIUM CHLORIDE 0.9% 250 ML IV NR
[2022-06-05 08:09] VITALS: RESP 16; TEMP 98.1
[2022-06-05 09:42] VITALS: BP 131/82; PULSE 80
== END ==
LOC: PROCWHC3 07:57
PROVIDERS: ATTEND Internal Medicine Rheumatology
DX: L40.59 Other psoriatic arthropathy (principal)
CPT/HCPCS: 96413; 96415; Q5103

== ENCOUNTER 2023-06-26 11:33 | Day surgery (SDC) | payer MEDICAID, OTHER ==
[2023-06-21 16:00] VITALS: BMI 32.5
[2023-06-26] MEDS: LACTATED RINGERS 1,000 ML IV SCH (11:51)
[2023-06-26 12:11] VITALS: TEMP 97.8
[2023-06-26] MEDS ORDERED: PROPOFOL 10 MG/ML 20 ML VIAL IV ONE (12:31)
--- NOTE | 2023-06-26 12:38 | P.GSHP ---
History of Present Illness H&P Date: 06/26/23 Chief Complaint: Colon cancer screening 52-year-old male here for colonoscopy. He has not had one previously. No bowel complaints. Family history of colon cancer in a grandparent. Past Medical History Past Medical History: Hyperlipidemia, Hypertension Additional Past Medical History / Comment(s): psoriasis History of Any Multi-Drug Resistant Organisms: None Reported Past Surgical History: Orthopedic Surgery Additional Past Surgical History / Comment(s): left knee scope Past Anesthesia/Blood Transfusion Reactions: No Reported Reaction Past Psychological History: No Psychological Hx Reported Smoking Status: Never smoker Past Alcohol Use History: Occasional Additional Past Alcohol Use History / Comment(s): . Past Drug Use History: None Reported - Past Family History Father History Unknown: Yes Mother History Unknown: Yes Additional Family Medical History / Comment(s): GREAT GRANDMA HISTORY OF STROKES Medications and Allergies Home Medications Medication Instructions Recorded Confirmed Type Atorvastatin [Lipitor] 20 mg PO HS 06/21/23 06/26/23 History amLODIPine [Norvasc] 5 mg PO DAILY 06/21/23 06/26/23 History Allergies Allergy/AdvReac Type Severity Reaction Status Date / Time No Known Allergies Allergy Verified 06/26/23 11:58 Surgical - Exam Vital Signs Temp Pulse Resp BP Pulse Ox 97.8 F 74 18 134/94 97 06/26/23 11:55 06/26/23 11:55 06/26/23 11:55 06/26/23 11:55 06/26/23 11:55 Physical exam: General: Well-developed, well-nourished HEENT: Normocephalic, sclerae nonicteric Abdomen: Nontender, nondistended Extremities: No edema Neuro: Alert and oriented Assessment and Plan (1) Colon cancer screening Narrative/Plan: Will proceed with colonoscopy at this time. Current Visit: Yes Status: Acute Code(s): Z12.11 - ENCOUNTER FOR SCREENING FOR MALIGNANT NEOPLASM OF COLON SNOMED Code(s): 438601008
--- NOTE | 2023-06-26 12:48 | P.PCN ---
Date of Procedure: 06/26/23 Procedure(s) Performed: PREOPERATIVE DIAGNOSIS: Colon cancer screening POSTOPERATIVE DIAGNOSIS: Normal exam PROCEDURE: Colonoscopy ANESTHESIA: MAC SURGEON: Michael Castillo M.D. SPECIMENS: None ENDOSCOPIC PROCEDURE: The patient was placed on the endoscopy table in the left decubitus position. The Olympus colonoscope was inserted into the anus and passed under direct visualization to the base of the cecum. The appendiceal orifice was visualized. From that point the scope was slowly withdrawn inspecti ng all surfaces carefully. There were no neoplastic inflammatory or polypoid lesions throughout the cecum, ascending, transverse, descending, sigmoid and rectum. There was no visible diverticulosis noted. Digital rectal examination was normal. The patient was taken to the recovery room in stable condition per anesthesia guidelines. RECOMMENDATIONS: Resume diet. Repeat colonoscopy 10 years.
[2023-06-26 12:56] VITALS: RESP 16
[2023-06-26 13:41] VITALS: BP 133/86; PULSE 73
== END 2023-06-26 13:27 | disposition home or self-care (01) ==
LOC: ORWHC2ENDO 11:33
PROVIDERS: ATTEND Surgery
DX: Z12.11 Encounter for screening for malignant neoplasm of colon (principal); I10 Essential (primary) hypertension; E78.5 Hyperlipidemia, unspecified; G47.33 Obstructive sleep apnea (adult) (pediatric); Z98.890 Other specified postprocedural states; Z79.899 Other long term (current) drug therapy
CPT/HCPCS: 45378; J2704

== ENCOUNTER → 2023-07-19 | Outpatient (CLI) | payer MEDICAID ==
[2023-07-19 18:07] LABS: Basophils # (A) 0.04 X 10*3/uL (0.00-0.10); Basophils % (A) 0.8 %; Eosinophils # (A) 0.14 X 10*3/uL (0.04-0.35); Eosinophils % (A) 2.9 %; HCT 47.7 % (39.6-50.0); HGB 16.1 g/dL (13.0-17.0); Lymphocytes % (A) 33.1 %; MCH 30.4 pg (27.0-32.0); MCHC 33.8 g/dL (32.0-37.0); MCV 90.2 FL (80.0-97.0); Mean Platelet Volume 10.3 FL (9.5-12.2); Monocytes # (A) 0.64 X 10*3/uL (0.20-1.00); Monocytes % (A) 13.3 %; NRBC Per 100 WBC 0 X 10*3/uL (0.00-0.01); Neutrophils # (A) 2.39 X 10*3/uL (1.80-7.70); Neutrophils % (A) 49.5 %; Platelet Count 174 X 10*3/uL (140-440); RBC 5.29 X 10*6/uL (4.40-5.60); WBC 4.83 X 10*3/uL (4.50-10.00)
[2023-07-19 21:12] LABS: ALT 49 U/L (10-49); AST 28 U/L (14-35); Albumin 4.9 g/dL (3.8-4.9); Albumin/Globulin Ratio 1.58 Ratio (1.60-3.17); Alkaline Phosphatase 54 U/L (41-126); BUN/Creat Ratio 13.92 Ratio (12.00-20.00); Blood Urea Nitrogen 16.7 mg/dL (9.0-27.0); Calcium 10.1 mg/dL (8.7-10.3); Carbon Dioxide 24.8 mmol/L (21.6-31.8); Chloride 101 mmol/L (96-109); Chol/HDL Ratio 2.69 Ratio; Globulin 3.1 g/dL (1.6-3.3); Glucose 97 mg/dL (70-110); LDL Cholesterol,Calculated 88.8 mg/dL (0.0-131.0); Potassium 4.1 mmol/L (3.5-5.5); Sodium 138 mmol/L (135-145); T4, Free (Free Thyroxine) 1.37 ng/dL (0.80-1.80); Total Bilirubin 0.5 mg/dL (0.3-1.2)
== END | disposition home or self-care (01) ==
LOC: LABWHC1 12:04
PROVIDERS: ATTEND Internal Medicine Geriatric Medicine
DX: D72.819 Decreased white blood cell count, unspecified (principal); E78.5 Hyperlipidemia, unspecified; E03.9 Hypothyroidism, unspecified; R73.9 Hyperglycemia, unspecified
CPT/HCPCS: 36415; 80053; 80061; 83036; 84439; 84443; 85025

== ENCOUNTER → 2024-06-25 | Outpatient (CLI) | payer MEDICAID ==
[2024-06-25 10:54] LABS: ALT 48 U/L (10-49); AST 30 U/L (14-35); Albumin 4.4 g/dL (3.8-4.9); Albumin/Globulin Ratio 1.47 Ratio (1.60-3.17); Alkaline Phosphatase 62 U/L (41-126); BUN/Creat Ratio 15.33 Ratio (12.00-20.00); Blood Urea Nitrogen 18.4 mg/dL (9.0-27.0); Calcium 9.2 mg/dL (8.7-10.3); Carbon Dioxide 21.4 mmol/L (21.6-31.8); Chloride 104 mmol/L (96-109); Chol/HDL Ratio 3.58 Ratio; Glucose 108 mg/dL (70-110); LDL Cholesterol,Calculated 105.9 mg/dL (0.0-131.0); Potassium 4.3 mmol/L (3.5-5.5); Prostate Specific Antigen 0.31 ng/mL (0.000-3.500); Sodium 138 mmol/L (135-145); T4, Free (Free Thyroxine) 0.98 ng/dL (0.80-1.80); Total Bilirubin 0.5 mg/dL (0.3-1.2); Total Protein 7.4 g/dL (6.2-8.2)
[2024-06-25 15:20] LABS: Basophils # (A) 0.03 X 10*3/uL (0.00-0.10); Basophils % (A) 0.7 %; Eosinophils # (A) 0.19 X 10*3/uL (0.04-0.35); Eosinophils % (A) 4.3 %; HCT 47.4 % (39.6-50.0); HGB 15.7 g/dL (13.0-17.0); Lymphocytes # (A) 1.61 X 10*3/uL (0.90-5.00); Lymphocytes % (A) 36.6 %; MCH 29.5 pg (27.0-32.0); MCHC 33.1 g/dL (32.0-37.0); MCV 88.9 FL (80.0-97.0); Mean Platelet Volume 10.5 FL (9.5-12.2); Monocytes # (A) 0.56 X 10*3/uL (0.20-1.00); Monocytes % (A) 12.7 %; NRBC Per 100 WBC 0 X 10*3/uL (0.00-0.01); Neutrophils % (A) 45.5 %; Platelet Count 160 X 10*3/uL (140-440); RBC 5.33 X 10*6/uL (4.40-5.60); RDW 12.6 % (11.5-14.5)
== END | disposition home or self-care (01) ==
LOC: LABWHC1 08:04
PROVIDERS: ATTEND Internal Medicine Geriatric Medicine
DX: I10 Essential (primary) hypertension (principal); E03.9 Hypothyroidism, unspecified; E78.5 Hyperlipidemia, unspecified; D72.819 Decreased white blood cell count, unspecified; N40.0 Benign prostatic hyperplasia without lower urinary tract symptoms; R73.9 Hyperglycemia, unspecified
CPT/HCPCS: 36415; 80053; 80061; 83036; 84153; 84439; 84443; 85025